=== PATIENT | male | born 2000 | race Caucasian/White ===

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

== ENCOUNTER 2019-04-21 15:00 | Emergency (ER) | payer BC ==
[2019-04-21 15:28] VITALS: BP 123/73
--- NOTE | 2019-04-21 15:48 | UC ---
Throat Pain/Nasal Dick HPI - HPI Summary HPI Summary: 19-year-old male comes in with chief complaint of sore throat fevers and feeling ill. Started yesterday. He did take some ibuprofen which did help some symptoms. No cough or chest congestion. Throat hurts more when he swallows. Minimal myalgias. - History of Current Complaint Chief Complaint: UCGeneralIllness Stated Complaint: FLU LIKE SYMPTOMS Time Seen by Provider: 04/21/19 15:31 Pain Intensity: 5 - Allergies/Home Medications Allergies/Adverse Reactions: Allergies Allergy/AdvReac Type Severity Reaction Status Date / Time No Known Allergies Allergy Verified 04/21/19 15:28 Home Medications: Home Medications D-Methorphan/PE/Acetaminophen [Daytime Cold Multi-Symp Gelcap] 1 each PO DAILY PRN 04/21/19 [History Confirmed 04/21/19] Fexofenadine/Pseudoephedrine [Shari-D 24 Hour Tablet] 1 each PO DAILY PRN [History Confirmed 04/21/19] guaiFENesin [Mucinex] 1,200 mg PO DAILY PRN 04/21/19 [History Confirmed 04/21/19 ] PMH/Surg Hx/FS Hx/Imm Hx Previously Healthy: Yes - Surgical History Surgical History: None - Family History Known Family History: Positive: Hypertension Negative: Diabetes - Social History Alcohol Use: Weekly Substance Use Type: Marijuana Substance Use Comment - Amount & Last Used: occasional use Smoking Status (MU): Current Every Day Smoker Type: eCigarettes Have You Smoked in the Last Year: No - Immunization History Vaccination Up to Date: Yes Review of Systems All Other Systems Reviewed And Are Negative: Yes Constitutional: Positive: Fever, Chills, Other - see hpi Skin: Positive: Negative Eyes: Positive: Negative ENT: Positive: Sore Throat, Nasal Discharge, Sinus Congestion Respiratory: Positive: Negative Cardiovascular: Positive: Negative Gastrointestinal: Positive: Negative Motor: Positive: Negative Neurovascular: Positive: Negative Neurological: Positive: Negative Psychological: Positive: Negative Is Patient Immunocompromised?: No Physical Exam Triage Information Reviewed: Yes Appearance: No Pain Distress, Well-Nourished, Ill-Appearing - mild Vital Signs: Initial Vital Signs Temp 98.6 F 04/21/19 15:22 Pulse 93 04/21/19 15:22 Resp 18 04/21/19 15:22 BP 123/73 04/21/19 15:22 Pulse Ox 96 04/21/19 15:22 Vital Signs Reviewed: Yes Eye Exam: Normal Eyes: Positive: Conjunctiva Clear ENT: Positive: Pharyngeal erythema, Nasal congestion, Nasal drainage, TMs normal Neck: Positive: Supple Respiratory: Positive: Lungs clear, Normal breath sounds, No respiratory distress Cardiovascular: Positive: RRR Musculoskeletal: Positive: Strength Intact, ROM Intact Neurological: Positive: Alert, Muscle Tone Normal Psychological: Positive: Age Appropriate Behavior Skin Exam: Normal Throat Pain/Nasal Course/Dx - Differential Dx/Diagnosis Provider Diagnosis: Strep pharyngitis Discharge ED - Sign-Out/Discharge Documenting (check all that apply): Patient Departure All imaging exams completed and their final reports reviewed: No Studies - Discharge Plan Condition: Stable Disposition: HOME Prescriptions: Amoxicillin PO (*) [Amoxicillin 875 MG (*)] 875 mg PO BID #20 tab Patient Education Materials: Strep Throat (ED) Referrals: [facility] [Outside] Additional Instructions: FOLLOW UP WITH YOUR DOCTOR IF NOT COMPLETELY IMPROVED. GET REEVALUATED SOONER IF NOT IMPROVING OR YOUR CONDITION WORSENS OR ANY QUESTIONS OR CONCERNS. - Billing Disposition and Condition Condition: STABLE Disposition: Home
[2019-04-21 15:51] LABS: Influenza A Molecular NEGATIVE (Negative); Influenza B Molecular NEGATIVE (Negative)
== END 2019-04-21 16:00 | disposition home or self-care (01) ==
LOC: UCCORT 15:00
DX: J02.0 Streptococcal pharyngitis (principal); R09.81 Nasal congestion; R09.89 Other specified symptoms and signs involving the circulatory and respiratory systems; M79.10 Myalgia, unspecified site; F17.290 Nicotine dependence, other tobacco product, uncomplicated
CPT/HCPCS: 87651; 99212; G0463

== ENCOUNTER 2019-09-05 18:37 | Emergency (ER) | payer BC ==
[2019-09-05 18:52] VITALS: BP 136/85
[2019-09-05 19:29] LABS: Influenza A Molecular Negative (Negative); Influenza B Molecular Negative (Negative)
--- NOTE | 2019-09-05 19:30 | UC ---
FLU HPI - HPI Summary HPI Summary: 19-year-old male comes in with a chief complaint of influenza-like symptoms. Patient started with fevers chills and bodyaches sore throat yesterday morning when he awoke. Patient traveled to [place] on September 02, 2019. He played in a [employer] tournament in [place] on September 03, 2019. He went into [place] the evening of September 03, 2019. He did not knowingly come into contact with anybody with coronavirus. He woke up the morning of September 04, 2019 with his symptoms. Does have some postnasal drip. Denies any chest congestion. Has been using acetaminophen which does help some with the fevers. - History of Current Complaint Chief Complaint: UCGeneralIllness Stated Complaint: FEVER,SORE THROAT,COUGH Time Seen by Provider: 09/05/19 19:03 Pain Intensity: 6 - Allergy/Home Medications Allergies/Adverse Reactions: Allergies Allergy/AdvReac Type Severity Reaction Status Date / Time No Known Allergies Allergy Verified 09/05/19 18:52 Home Medications: Home Medications Fexofenadine/Pseudoephedrine [Shari-D 24 Hour Tablet] 1 each PO DAILY PRN [History Confirmed 09/05/19] Acetaminophen TAB* [Tylenol TAB*] 650 mg PO Q4H PRN 09/05/19 [History Confirmed 09/05/19] PMH/Surg Hx/FS Hx/Imm Hx Previously Healthy: Yes - Surgical History Surgical History: None - Family History Known Family History: Positive: Hypertension Negative: Diabetes - Social History Alcohol Use: Weekly Substance Use Type: Marijuana Substance Use Comment - Amount & Last Used: occasional use Smoking Status (MU): Never Smoked Tobacco Type: eCigarettes Have You Smoked in the Last Year: No - Immunization History Vaccination Up to Date: Yes Review of Systems All Other Systems Reviewed And Are Negative: Yes Constitutional: Positive: Fever, Chills, Other - SEE HPI Skin: Positive: Negative Eyes: Positive: Negative ENT: Positive: Sore Throat, Nasal Discharge, Sinus Congestion Respiratory: Positive: Cough Cardiovascular: Positive: Negative Gastrointestinal: Positive: Negative Motor: Positive: Negative Neurovascular: Positive: Negative Musculoskeletal: Positive: Myalgia Neurological/Mental Status: Positive: Headache Psychological: Positive: Negative Is Patient Immunocompromised?: No Physical Exam Triage Information Reviewed: Yes Appearance: No Pain Distress, Well-Nourished, Ill-Appearing - MILD Vital Signs: Initial Vital Signs Temp 99.7 F 09/05/19 18:49 Pulse 111 09/05/19 18:49 Resp 16 09/05/19 18:49 BP 136/85 09/05/19 18:49 Pulse Ox 100 09/05/19 18:49 Vital Signs Reviewed: Yes Eye Exam: Normal Eyes: Positive: Conjunctiva Clear ENT: Positive: Pharyngeal erythema, Nasal congestion, Nasal drainage, TMs normal Neck: Positive: Supple Respiratory: Positive: No respiratory distress, Rhonchi Cardiovascular: Positive: RRR Musculoskeletal: Positive: Strength Intact, ROM Intact Neurological: Positive: Alert, Muscle Tone Normal Psychological: Positive: Age Appropriate Behavior Skin Exam: Normal Flu Course/Dx - Course Course Of Treatment: Strep and flu were negative. Patient's primary symptoms are a large amount of saliva production and postnasal drip and resultant cough. Denies any chest congestion. Does have body aches and chills. Case was discussed with Aishwarya Lopes infectious disease. Given that the patient had not been in [place] for 48 hours before he came down with his illness it makes it highly unlikely to be coronavirus. Will treat symptomatically for an influenza-like illness get reevaluated if worse or not improving. - Differential Dx/Diagnosis Provider Diagnosis: Influenza-like illness Discharge ED - Sign-Out/Discharge Documenting (check all that apply): Patient Departure All imaging exams completed and their final reports reviewed: No Studies - Discharge Plan Condition: Stable Disposition: HOME Patient Education Materials: Viral Syndrome (ED) Referrals: [facility] [Outside] Additional Instructions: FOLLOW UP WITH YOUR DOCTOR IF NOT COMPLETELY IMPROVED. Continue symptomatic treatment with Tylenol and ibuprofen and rest. Get reevaluated if worse or not improving. GET REEVALUATED SOONER IF NOT IMPROVED OR WORSE OR ANY QUESTIONS OR CONCERNS. - Billing Disposition and Condition Condition: STABLE Disposition: Home
== END 2019-09-05 20:31 | disposition home or self-care (01) ==
LOC: UCCORT 18:37
DX: J02.9 Acute pharyngitis, unspecified (principal); R50.9 Fever, unspecified; R05 Cough; R52 Pain, unspecified; R09.81 Nasal congestion; R09.89 Other specified symptoms and signs involving the circulatory and respiratory systems
CPT/HCPCS: 87651; 99211; G0463